=== PATIENT | male | born 1955 | race Caucasian/White ===

== ENCOUNTER 2017-01-01 20:03 | Emergency (ER) | payer OTHER ==
[~2017-01-01] VITALS: Ht 172.7 cm; Wt 80.7 kg
[~2017-01-01 20:03] MED LIST: CIPRO500 M1 PO; FLAGYL ER750 MG PO
[2017-01-01 20:58] LABS: ABSOLUTE BASOPHIL COUNT 0 /CUMM (0.0-0.2); ABSOLUTE EOSINOPHIL COUNT 0 /CUMM (0.0-0.7); ABSOLUTE GRANULOCYTE CT 3.8 /CUMM (1.4-6.5); ABSOLUTE LYMPH COUNT 0.5 /CUMM (1.2-3.4); ABSOLUTE MONOCYTE COUNT 0.6 /CUMM (0.10-0.60); BASOPHIL % 0.1 % (0.0-2.0); EOSINOPHIL % 0.6 % (0-5); GRANULOCYTE % 77.5 % (42.2-75.2); HEMATOCRIT 42.3 % (42-52); MEAN CORPUSCULAR HGB 30.1 PG (27.0-31.0); MEAN CORPUSCULAR HGB CONC 33.9 G/DL (33.0-37.0); MEAN CORPUSCULAR VOLUME 88.9 FL (80.0-94.0); MEAN PLATELET VOLUME 8.3 FL (7.4-10.4); PLATELET COUNT 177 /CUMM (130-400); RBC DISTRIBUTION WIDTH 12.7 % (11.5-14.5); RED BLOOD CELL CT 4.76 /CUMM (4.70-6.10); WHITE BLOOD CELL COUNT 4.9 /CUMM (4.8-10.8)
--- NOTE | 2017-01-01 21:16 | ED DYSPNEA/ASTHMA COMPLAINT ---
History of Present Illness General Chief Complaint: Upper Respiratory Sx/Fever Stated Complaint: ON AMOX FOR URI,NOW WITH 102 FEVER,FEELING WORSE Source: patient Exam Limitations: no limitations Vital Signs & Intake/Output Vital Signs & Intake/Output Vital Signs Date Time Temp Pulse Resp B/P B/P Pulse O2 O2 Flow FiO2 Mean Ox Delivery Rate 01/02 2220 97.6 82 18 176/80 98 Room Air 01/02 2108 Room Air 01/01 2034 98.0 85 20 130/83 97 Room Air ED Intake and Output 01/02 0000 01/01 1200 Intake Total 0 Output Total Balance 0 Intake, Oral 0 Patient 178 lb Weight Weight Reported by Patient Measurement Method Allergies Coded Allergies: No Known Allergies (01/01/17) Reconcile Medications Ciprofloxacin HCl (Cipro) 500 MG TABLET 1 TAB PO BID DIVERTICULITIS Metronidazole (Flagyl ER) 750 MG TABLET.ER 1 TAB PO BID DIVERTICULTIS Oseltamivir Phosphate (Tamiflu) 75 MG CAPSULE 1 CAP PO BID INFLUENZA Triage Note: TRIAGE: PT TO ER C/C WORSENING URI. WAS STARTED ON AMOXICILLIN ON MONDAY, PMD OFFICE CALLED IN PRESCRIPTION WITHOUT EVALUATING. REPORTS S/S OF PRODUCTIVE COUGH WITH "A LITTLE BIT OF YELLOW TINTED PHLEGM". HAS ALSO BEEN TAKING MUCINEX. REPORTS HIGHES TEMP 102.1, LAST DOSE OF TYLENOL APPROX 19:00 (TOOK DOSE JUST AFTER TAKING TEMP). AFEBRILE AT TRIAGE. STATES HE WOULD LIKE A CHEST XRAY TO R/O PNEUMONIA. Triage Nurses Notes Reviewed? yes Onset: Gradual Duration: day(s): Timing: recent history Severity: moderate Activities at Onset: none Prior Episodes/Possible Cause: no prior episodes Modifying Factors: Improves With: rest. Associated Symptoms: body aches, fever HPI: 61yo gentleman in prior good health presents with fever, body aches, dry cough for the past 2-3 days. His PMD called in a rx for augmentin which he has taken for the past 2 days, "but I don' t feel better." He notes mild dry cough, but no chest pain, shortness of breath, significant phlegm, nausea, vomiting, diarrhea. He is otherwise well. Past History Travel History Traveled to [place] past 21 day No Medical History Any Pertinent Medical History? see below for history Neurological: NONE EENT: NONE Cardiovascular: hypertension Respiratory: NONE Gastrointestinal: INGUINAL HERNIAS INFAN Hepatic: NONE Renal: NONE Musculoskeletal: NONE Psychiatric: NONE Endocrine: hypothyroidism Blood Disorders: NONE Cancer(s): NONE PERSONAL CLOTHING LAUNDRY AIDE/Reproductive: NONE Surgical History Surgical History: non-contributory Psychosocial History What is your primary language Bulgarian Tobacco Use: Quit >30 days ago ETOH Use: denies use Illicit Drug Use: denies illicit drug use Family History Hx Contributory? No Review of Systems Review of Systems Constitutional: Reports: no symptoms. EENTM: Reports: no symptoms. Respiratory: Reports: no symptoms. Cardiovascular: Reports: no symptoms. GI: Reports: no symptoms. Genitourinary: Reports: no symptoms. Musculoskeletal: Reports: no symptoms. Skin: Reports: no symptoms. Neurological/Psychological: Reports: no symptoms. Hematologic/Endocrine: Reports: no symptoms. Immunologic/Allergic: Reports: no symptoms. All Other Systems: Reviewed and Negative Physical Exam Physical Exam General Appearance: well developed/nourished, mild distress Head: atraumatic, normal appearance Eyes: Bilateral: normal appearance. Ears, Nose, Throat: normal pharynx, normal ENT inspection Neck: normal inspection, supple, full range of motion Respiratory: normal breath sounds, chest non-tender, no respiratory distress, quiet respiration, lungs clear Cardiovascular: regular rate/rhythm Gastrointestinal: normal bowel sounds, soft, non-tender, no organomegaly Extremities: normal inspection, normal capillary refill, normal range of motion, no edema Neurologic/Psych: no motor/sensory deficits, awake, alert, oriented x 3 Skin: intact, normal color, warm/dry Core Measures ACS in differential dx? No Severe Sepsis Present: No Septic Shock Present: No Progress Differential Diagnosis: asthma, bronchitis, CHF, COPD, pneumonia Plan of Care: Orders Procedure Date/time Status RAPID VIRAL INFLUENZA A 01/01 2014 Complete TROPONIN LEVEL 01/01 2014 Complete COMPREHENSIVE METABOLIC PANEL 01/01 2014 Complete CBC WITHOUT DIFFERENTIAL 01/01 2014 Complete EKG 01/01 2014 Active Laboratory Tests 01/01/172054: Anion Gap 10, Estimated GFR > 60, BUN/Creatinine Ratio 16.7, Glucose 93, Calcium 8.9, Total Bilirubin 0.5, AST 39, ALT 47, Alkaline Phosphatase 42, Troponin I < 0.01, Total Protein 7.0, Albumin 4.2, Globulin 2.8, Albumin/Globulin Ratio 1.5, CBC w Diff NO MAN DIFF REQ, RBC 4.76, MCV 88.9, MCH 30.1, RDW 12.7, MPV 8.3, Gran % 77.5 H, Lymphocytes % 9.6 L, Monocytes % 12.2 H, Eosinophils % 0.6, Basophils % 0.1, Absolute Granulocytes 3.8, Absolute Lymphocytes 0.5 L, Absolute Monocytes 0.6, Absolute Eosinophils 0, Absolute Basophils 0, PUBS MCHC 33.9 Microbiology 01/02 2048 NASOPHARYN: Influenza Virus A & B Rapid Smear - COMP INFLUENZA TYPE B Diagnostic Imaging: Viewed by Me: Radiology Read. Discussed w/RAD: Radiology Read. CXR Impression: no acute abnormality, no infiltrates, normal size heart, normal mediastinum Initial ED EKG: normal axis, normal intervals, normal p-waves, normal QRS complex, normal sinus rhythm Departure Departure Disposition: HOME OR SELF CARE Condition: Stable Clinical Impression Primary Impression: Influenza Referrals: CONTRERAS PAYAN APRN (PCP/Family) Departure Forms: Customer Survey General Discharge Information Prescriptions: Current Visit Scripts Oseltamivir Phosphate (Tamiflu) 1 CAP PO BID #10 CAP Comments 01/01/17, 22:20... pt with influenza... otherwise well, labs benign... pt stable for home with tamiflu... encouraged close follow up with pmd. Critical Care Note Critical Care Note Critical Care Time: non-applicable
[2017-01-01] MEDS ORDERED: TAMIFLU75 M1 PO (21:34)
--- NOTE | 2017-01-01 21:48 | RADIOLOGY REPORT ---
EXAMINATION: XR CHEST CLINICAL INFORMATION: Dyspnea. COMPARISON: Multiple priors, most recent chest radiographs dated 02/27/2012. TECHNIQUE: PA and lateral views of the chest were obtained. FINDINGS: The lungs are clear. The cardiomediastinal silhouette is normal in size. There is no pleural effusion or pneumothorax. No acute abnormalities are noted in the visualized bones. IMPRESSION: No acute cardiopulmonary disease.
[2017-01-01 22:20] VITALS: BP 176/80
== END 2017-01-01 22:23 ==
LOC: ERH 20:03
PROVIDERS: Pediatrics
DX: J10.1 Influenza due to other identified influenza virus with other respiratory manifestations (principal); Z87.891 Personal history of nicotine dependence
CPT/HCPCS: 87804; 87804-59; 93005; 93010

== ENCOUNTER 2017-01-05 17:43 | Emergency (ER) | payer OTHER ==
[~2017-01-05] VITALS: Ht 172.7 cm; Wt 80.7 kg
[~2017-01-05 17:43] MED LIST changes: +TAMIFLU75 M1 PO
[2017-01-05 17:50] VITALS: BP 142/79
[2017-01-05] MEDS ORDERED: LEVOTHYROXINE112 MCG PO (18:10)
[2017-01-05] MEDS ORDERED: SYNTHROID112 MCG PO (18:10)
[2017-01-05] MEDS ORDERED: KRILL OIL500 MG PO (18:11)
[2017-01-05] MEDS ORDERED: METOPROLOL SUCC50 M2 PO (18:11)
[2017-01-05] MEDS ORDERED: LISINOPRIL20 M1 PO (18:11)
[2017-01-05] MEDS ORDERED: ASPIRIN EC81 M1 PO (18:11)
[2017-01-05] MEDS ORDERED: FIBERCON625 M1 PO (18:12)
[2017-01-05] MEDS ORDERED: VITAMIN C250 M3 PO (18:12)
[2017-01-05] MEDS ORDERED: VITAMIN D2000 UNIT PO (18:12)
[2017-01-05] MEDS ORDERED: MULTI-DAY VITA1 EACH PO (18:12)
[2017-01-05] MEDS ORDERED: AMOX-CLAV 875-1 EACH PO (18:13)
--- NOTE | 2017-01-05 18:34 | ED SKIN/ALLERGY COMPLAINT ---
History of Present Illness General Chief Complaint: General Adult Stated Complaint: SENT BY ANN-MARIE PAYAN FOR EVAL ? ALLERGIC REACTION Source: patient Exam Limitations: no limitations Vital Signs & Intake/Output Vital Signs & Intake/Output Vital Signs Date Time Temp Pulse Resp B/P B/P Pulse O2 O2 Flow FiO2 Mean Ox Delivery Rate 01/05 1802 Room Air 01/05 1750 98.1 78 16 142/79 98 Room Air Allergies Coded Allergies: No Known Allergies (01/01/17) Reconcile Medications Amoxicillin/Clavulanate Potass (Amox-Clav 875-125 MG Tablet) 875 MG-125 MG TABLET 1 TAB PO BID ANTIBIOTIC (Reported) Ascorbic Acid (Vitamin C) 250 MG TABLET 2-3 TAB PO DAILY SUPPLEMENT (Reported ) Aspirin (Ecotrin*) 81 MG TABLET.DR 1 TAB PO DAILY HEART/BLOOD (Reported) Calcium Polycarbophil (Fibercon) (Unknown Strength) TABLET 2 TAB PO DAILY SUPPLEMENT (Reported) Cholecalciferol (Vitamin D3) (Vitamin D) 2,000 UNIT CAPSULE 1 CAP PO DAILY SUPPLEMENT (Reported) Krill Oil (Unknown Strength) CAPSULE (Unknown Dose) PO DAILY SUPPLEMENT ( Reported) Levothyroxine Sodium 112 MCG TABLET 1 TAB PO AD THYROID (Reported) Levothyroxine Sodium (Synthroid) 112 MCG TABLET 0.5 TAB PO QMON THYROID ( Reported) Lisinopril 20 MG TABLET 1 TAB PO DAILY BP (Reported) Metoprolol Succinate 50 MG TAB.ER.24H 1 TAB PO DAILY BP (Reported) Multivitamin (Multi-Day Vitamins) 1 EACH TABLET 1 TAB PO DAILY SUPPLEMENT ( Reported) Oseltamivir Phosphate (Tamiflu) 75 MG CAPSULE 1 CAP PO BID INFLUENZA Triage Note: PT STATES HE IS HAVING AN ALLERGIC REACTION TO THE FLU MEDICATION THAT THEY PUT HIM ON MONDAY. PT STATES HE IS ALSO TAKING AN ABX ALSO. PT DENIES SOB OR THAT HIS THROAT IS CLOSING. Triage Nurses Notes Reviewed? yes Onset: Abrupt Duration: hour(s):, resolved prior to arrival Timing: single episode today Severity: moderate, severe No Modifying Factors: none HPI: 61 -year-old male that was seen here over the weekend and diagnosed with influenza with a positive flu swab comes in for possible allergic reaction. Patient had blood work and EKG done over the weekend. Apparently he has been on the Tamiflu and he was also started on Augmentin over the weekend by his primary care doctor. He reports that today he had some lower lip swelling and felt like it was difficult to swallow some mild acid reflux. He called his doctor who thought he might be having an allergic reaction. Symptoms then got better. He denies any symptoms at this time. He denies any chest pain or shortness of breath. Patient reports it felt like his throat was closing up. Patient denies any other associated symptoms at this time. (TRU LUNA) Past History Travel History Traveled to [place] past 21 day No Medical History Any Pertinent Medical History? see below for history Neurological: NONE EENT: NONE Cardiovascular: hypertension Respiratory: NONE Gastrointestinal: INGUINAL HERNIAS INFAN Hepatic: NONE Renal: NONE Musculoskeletal: NONE Psychiatric: NONE Endocrine: hypothyroidism Blood Disorders: NONE Cancer(s): NONE WINDOWS SYSTEMS ADMIN/Reproductive: NONE Surgical History Surgical History: non-contributory Psychosocial History What is your primary language Syrian Tobacco Use: Quit >30 days ago ETOH Use: denies use Illicit Drug Use: denies illicit drug use Family History Hx Contributory? No (TRU LUNA) Review of Systems Review of Systems Constitutional: Reports: no symptoms. EENTM: Reports: no symptoms. Respiratory: Reports: no symptoms. Cardiovascular: Reports: no symptoms. GI: Reports: no symptoms. Genitourinary: Reports: no symptoms. Musculoskeletal: Reports: no symptoms. Skin: Reports: no symptoms. Neurological/Psychological: Reports: no symptoms. Hematologic/Endocrine: Reports: no symptoms. Immunologic/Allergic: Reports: see HPI. All Other Systems: Reviewed and Negative (TRU LUNA) Physical Exam Physical Exam General Appearance: well developed/nourished, alert, awake Head: atraumatic Eyes: Bilateral: normal appearance, EOMI. Ears, Nose, Throat: normal pharynx, normal ENT inspection, hearing grossly normal, NO LOWER LIP SWELLING, NO ANGIOEDEMA Neck: normal inspection Respiratory: normal breath sounds, no respiratory distress Cardiovascular: regular rate/rhythm Back: normal inspection Extremities: normal inspection, normal range of motion, no edema Neurologic/Psych: awake, alert, oriented x 3, normal mood/affect Skin: intact, normal color Lymphatic: no anterior cervical nathaniel (TRU LUNA) Progress Differential Diagnosis: abscess/cellulitis, allergic reaction, anaphylaxis, angioedema, contact dermatitis, drug reaction Plan of Care: Current Medications Sig/Judie Start time Last Medication Dose Stop Time Status Admin Prednisone 60 MG ONCE ONE 01/05 1845 01/05 1846 Comments: 01/05/2017 6:47:04 PM Patient clinically looks well. Nontoxic-appearing. Patient has no symptoms at this time. There is no lip swelling appreciated. HAs no angioedema. No wheezing. Patient was given a one-time dose of prednisone here. Told to use Benadryl at home. At this time I do not feel the patient requires a course of prednisone due to the fact that he is asymptomatic. (TRU LUNA) Departure Departure Disposition: HOME OR SELF CARE Condition: Stable Clinical Impression Primary Impression: Allergic reaction Referrals: CONTRERAS PAYAN APRN (PCP/Family) Additional Instructions: Take Benadryl as needed at home. Discontinue both medications. Return if any other concerns worsening symptoms. Please go over all results of today's visit with your primary care doctor. Contact your primary care doctor to let them know you were here in the emergency room. There may be nonspecific findings which may not be related to your visit today here in the emergency room but may require further evaluation and chronic monitoring by your primary care doctor. If you had a laceration today the chance of foreign body always remains. You should follow-up with your primary care doctor for recheck in 3-5 days for a wound check. If you had an x-ray done there is a chance that a fracture could have been missed on initial read and you should follow-up with your primary care doctor for repeat x-rays if symptoms persist. If your blood pressure was elevated here in the emergency room please have rechecked by her primary care doctor within the next 48 hours by your primary care doctor. If you were prescribed a narcotic here in the emergency room or any type of controlled substances you're not allowed to drive while taking this medication or operate any type of heavy machinery. Narcotics can make you feel lightheaded dizziness nausea and can cause constipation. You may need to pick up attendant a stool softener. Thank you for choosing [facility] emergency room. Please return to the emergency room immediately if you have any other concerns worsening of symptoms. Departure Forms: Customer Survey General Discharge Information (TRU LUNA) PA/PLASTIC FINISHER Co-Sign Statement Statement: ED Attending supervision documentation- [] I saw and evaluated the patient. I have also reviewed all the pertinent lab results and diagnostic results. I agree with the findings and the plan of care as documented in the PA's/PLASTIC FINISHER's documentation. [X] I have reviewed the ED Record and agree with the PA's/PLASTIC FINISHER's documentation. [] Additions or exceptions (if any) to the PAs/PLASTIC FINISHER's note and plan are summarized below: [] (SVEN HIDALGO DO)
== END 2017-01-05 18:45 ==
LOC: ERH 17:43
DX: T50.991A Poisoning by other drugs, medicaments and biological substances, accidental (unintentional), initial encounter (principal)